=== PATIENT | male | born 1955 | race Two or more races ===

== ENCOUNTER 2021-09-21 18:16 | Inpatient (IN) | payer MEDICARE, OTHER ==
[~2021-09-21] VITALS: Ht 175.3 cm; Wt 91.6 kg
[2021-09-21] MEDS ORDERED: SODIUM CHLORIDE 0.9% 500 ML IV ONE (18:45)
[2021-09-21 19:35] LABS: Albumin 3.6 g/dL (3.4-5.0); Basophils # (auto) 0.1 10 ^3/uL (0-0.2); Basophils % (auto) 0.6 % (0.0-2.0); Eosinophils # (auto) 0.1 10 ^3/uL (0-0.8); Eosinophils % (auto) 1.2 % (0.0-7.0); Hematocrit 41.4 % (41.0-53.0); Hemoglobin 14.1 g/dL (13.5-17.5); Lymphocytes # (auto) 1.3 10 ^3/uL (0.4-5.4); Mean Corpuscular Hemoglobin 32.2 pg (28.0-32.0); Mean Corpuscular Hgb Conc. 33.9 g/dL (32.0-36.0); Mean Corpuscular Volume 94.9 fL (80.0-100.0); Monocytes # (auto) 0.7 10 ^3/uL (0-1.3); Monocytes % (auto) 7.3 % (0.0-12.0); Neutrophils # (auto) 7.8 10 ^3/uL (1.6-8.6); Neutrophils % (auto) 77.9 % (37.0-80.0); Nucleated Red Blood Cells % 0.1 %; Red Blood Cells 4.37 10^6/uL (4.5-5.90); Red Cell Distribution Width 14.7 % (11.8-14.3)
[2021-09-21 19:39] LABS: Bilirubin, Total 0.5 mg/dL (0.2-1.0); Total Protein 6.6 g/dL (6.4-8.2)
[2021-09-21 19:49] LABS: INR 1.29 (0.9-1.15)
[2021-09-21] MEDS ORDERED: IOHEXOL 350 MG/ML 100ML IJ ONE (20:11)
[2021-09-21] MEDS ORDERED: TENECTEPLASE 50 MG KIT IV ONE ×2 (21:00)
[2021-09-21] MEDS ORDERED: HEPARIN DRIP/D5W 100UNITS/ML 250 ML IV SCH (22:00)
[2021-09-21] MEDS ORDERED: HEPARIN SODIUM (PORCINE) 5000 UNITS/ML 1ML VIAL IV ONE ×2 (22:00)
[2021-09-21] MEDS ORDERED: DOCUSATE SOD 100 MG CAP PO PRN (22:15)
[2021-09-21] MEDS ORDERED: ACETAMINOPHEN 325 MG TAB PO PRN (22:15)
[2021-09-21] MEDS ORDERED: MORPHINE SULFATE INJECTION 2 MG/ML SYRG IV PRN (22:15)
[2021-09-21] MEDS ORDERED: NITROGLYCERIN 0.4 MG SL TAB SL PRN (22:15)
[2021-09-21] MEDS ORDERED: ONDANSETRON HCL 4 MG/2 ML VIAL IV PRN (22:15)
[2021-09-21 22:33] LABS: Basophils # (auto) 0.1 10 ^3/uL (0-0.2); Basophils % (auto) 0.9 % (0.0-2.0); Eosinophils # (auto) 0 10 ^3/uL (0-0.8); Eosinophils % (auto) 0.2 % (0.0-7.0); Hematocrit 41.9 % (41.0-53.0); Hemoglobin 13.7 g/dL (13.5-17.5); Lymphocytes # (auto) 0.8 10 ^3/uL (0.4-5.4); Lymphocytes % (auto) 6.2 % (10.0-50.0); Mean Corpuscular Hemoglobin 31.2 pg (28.0-32.0); Mean Corpuscular Hgb Conc. 32.6 g/dL (32.0-36.0); Mean Corpuscular Volume 95.6 fL (80.0-100.0); Monocytes # (auto) 1.4 10 ^3/uL (0-1.3); Monocytes % (auto) 10.8 % (0.0-12.0); Neutrophils # (auto) 10.6 10 ^3/uL (1.6-8.6); Neutrophils % (auto) 81.9 % (37.0-80.0); Red Blood Cells 4.38 10^6/uL (4.5-5.90); Red Cell Distribution Width 14.9 % (11.8-14.3)
[2021-09-21 22:47] LABS: INR 1.33 (0.9-1.15); Partial Thromboplastin Time 34.7 sec (23.6-33.0)
[2021-09-22 05:00] VITALS: BP 126/77
[2021-09-22] MEDS: SODIUM CHLOR 0.9% PF (SALINE LOCK) 10ML VIAL/SYR IV SCH ×3 (06:14→22:34)
[2021-09-22 07:04] LABS: Albumin 3.5 g/dL (3.4-5.0); Calcium 8.2 mg/dL (8.5-10.1); Potassium 4.2 mmol/L (3.5-5.1)
[2021-09-22 07:10] LABS: BUN/Creatinine Ratio 12.3; Bilirubin, Total 0.6 mg/dL (0.2-1.0); Total Protein 6.1 g/dL (6.4-8.2)
[2021-09-22 07:17] LABS: Basophils # (auto) 0 10 ^3/uL (0-0.2); Basophils % (auto) 0.2 % (0.0-2.0); Eosinophils # (auto) 0 10 ^3/uL (0-0.8); Eosinophils % (auto) 0.4 % (0.0-7.0); Hematocrit 39.3 % (41.0-53.0); Hemoglobin 13.2 g/dL (13.5-17.5); Lymphocytes # (auto) 1.2 10 ^3/uL (0.4-5.4); Lymphocytes % (auto) 12.9 % (10.0-50.0); Mean Corpuscular Hemoglobin 31.5 pg (28.0-32.0); Mean Corpuscular Hgb Conc. 33.6 g/dL (32.0-36.0); Mean Corpuscular Volume 93.7 fL (80.0-100.0); Monocytes # (auto) 1.2 10 ^3/uL (0-1.3); Monocytes % (auto) 12.8 % (0.0-12.0); Neutrophils # (auto) 6.9 10 ^3/uL (1.6-8.6); Neutrophils % (auto) 73.7 % (37.0-80.0); Nucleated Red Blood Cells % 0.1 %; Red Cell Distribution Width 14.4 % (11.8-14.3); White Blood Cell 9.3 10^3/uL (4.4-10.8)
[2021-09-22 07:18] LABS: INR 1.37 (0.9-1.15)
[2021-09-22 07:45] LABS: Partial Thromboplastin Time > 139.0 sec (23.6-33.0)
[2021-09-22 09:00] VITALS: BP 125/81
[2021-09-22] MEDS ORDERED: LIDOCAINE 2%HCL (LOCAL ANESTH.) INJ 20ML MDV ONE (09:40)
[2021-09-22] MEDS ORDERED: IODIXANOL 320MG/ML 100ML BTL IV ONE ×2 (09:40→10:39)
[2021-09-22] MEDS: ATENOLOL 25 MG TAB PO SCH ×2 (10:00→22:35)
[2021-09-22] MEDS: FAMOTIDINE (10MG/ML) 2ML VL IV SCH (10:00)
[2021-09-22] MEDS ORDERED: fentaNYL CITRATE 100 MCG/2 ML VL ONE ×2 (10:04→10:58)
[2021-09-22] MEDS ORDERED: ANGIOMAX 250 MG VIAL IV ONE ×2 (10:04→12:07)
[2021-09-22] MEDS ORDERED: MIDAZOLAM HCL 2MG/2ML 2ml VIAL (1mg/ml) ONE ×2 (10:05→10:58)
[2021-09-22] MEDS ORDERED: SODIUM CHL 0.9% 50 ML ONE ×2 (10:05→12:07)
[2021-09-22] MEDS ORDERED: HYDROmorphone HCL 2 MG/ML VL ONE (12:02)
[2021-09-22 13:00] VITALS: BP 100/63
[2021-09-22 17:00] VITALS: BP 124/71
[2021-09-22] MEDS: RIVAROXABAN 20 MG TAB PO SCH (18:00)
[2021-09-22 22:00] VITALS: BP 110/62
[2021-09-22] MEDS: ATORVASTATIN 20 MG TAB PO SCH (22:34)
[2021-09-22] MEDS: HYDROcodone-ACET 5/325MG TAB PO PRN (22:36)
[2021-09-23 05:00] VITALS: BP 122/68
[2021-09-23 05:59] LABS: Potassium 4.1 mmol/L (3.5-5.1)
[2021-09-23] MEDS: SODIUM CHLOR 0.9% PF (SALINE LOCK) 10ML VIAL/SYR IV SCH ×3 (05:59→22:25)
[2021-09-23] MEDS: HYDROcodone-ACET 5/325MG TAB PO PRN ×2 (05:59→22:26)
[2021-09-23 06:09] LABS: Albumin 3.3 g/dL (3.4-5.0)
[2021-09-23 06:18] LABS: BUN/Creatinine Ratio 14.7; Calcium 8.5 mg/dL (8.5-10.1)
[2021-09-23 06:20] LABS: Bilirubin, Direct 0.2 mg/dL (0-0.2); Bilirubin, Total 0.7 mg/dL (0.2-1.0); Total Protein 5.9 g/dL (6.4-8.2)
[2021-09-23 07:30] VITALS: BP 110/62
[2021-09-23] MEDS ORDERED: AMLO-489 PO (08:35)
[2021-09-23] MEDS ORDERED: ALLO100T PO (08:35)
[2021-09-23] MEDS ORDERED: LISI40TA11 PO (08:35)
[2021-09-23 08:39] LABS: Cholesterol 116 mg/dL (< 200)
[2021-09-23 08:42] LABS: HDL Cholesterol 44 mg/dL (40-59); LDL Cholesterol 56 mg/dL (< 100); Triglycerides 103 mg/dL (< 150)
[2021-09-23 08:46] VITALS: BP 111/58
[2021-09-23] MEDS: LISINOPRIL 20 MG TAB PO SCH ×2 (10:00→22:24)
[2021-09-23] MEDS: FAMOTIDINE (10MG/ML) 2ML VL IV SCH (10:14)
[2021-09-23] MEDS: ATENOLOL 25 MG TAB PO SCH ×2 (10:17→22:00)
[2021-09-23] MEDS: ALLOPURINOL 100 MG TAB PO SCH (10:17)
[2021-09-23 13:00] VITALS: BP 118/68
[2021-09-23] MEDS: amLODIPine BESYLATE 5 MG TAB PO SCH (13:04)
[2021-09-23 17:00] VITALS: BP 125/71
[2021-09-23] MEDS: RIVAROXABAN 20 MG TAB PO SCH (18:12)
[2021-09-23] MEDS: ATORVASTATIN 20 MG TAB PO SCH (22:23)
[2021-09-24 05:55] VITALS: BP 116/60
[2021-09-24] MEDS: SODIUM CHLOR 0.9% PF (SALINE LOCK) 10ML VIAL/SYR IV SCH ×3 (06:00→22:00)
[2021-09-24 09:00] VITALS: BP 111/62
[2021-09-24] MEDS: ATENOLOL 25 MG TAB PO SCH ×2 (09:41→22:00)
[2021-09-24] MEDS: FAMOTIDINE (10MG/ML) 2ML VL IV SCH (09:41)
[2021-09-24] MEDS: amLODIPine BESYLATE 5 MG TAB PO SCH (09:41)
[2021-09-24] MEDS: ALLOPURINOL 100 MG TAB PO SCH (09:42)
[2021-09-24] MEDS: LISINOPRIL 20 MG TAB PO SCH ×2 (09:42→22:21)
[2021-09-24] MEDS: RIVAROXABAN 20 MG TAB PO SCH (18:04)
[2021-09-24 22:00] VITALS: BP 139/75
[2021-09-24] MEDS: ATORVASTATIN 20 MG TAB PO SCH (22:20)
[2021-09-24] MEDS: HYDROcodone-ACET 5/325MG TAB PO PRN (22:33)
[2021-09-24] MEDS ORDERED: TOLV30TA2 PO ×2 (22:43→22:47)
[2021-09-25 05:00] VITALS: BP 117/56
[2021-09-25] MEDS: SODIUM CHLOR 0.9% PF (SALINE LOCK) 10ML VIAL/SYR IV SCH ×2 (06:26→14:00)
[2021-09-25 09:00] VITALS: BP 121/66
[2021-09-25] MEDS: FAMOTIDINE (10MG/ML) 2ML VL IV SCH (10:18)
[2021-09-25] MEDS: amLODIPine BESYLATE 5 MG TAB PO SCH (10:19)
[2021-09-25] MEDS: ATENOLOL 25 MG TAB PO SCH (10:19)
[2021-09-25] MEDS: LISINOPRIL 20 MG TAB PO SCH (10:20)
[2021-09-25] MEDS: ALLOPURINOL 100 MG TAB PO SCH (10:20)
[2021-09-25] MEDS ORDERED: RIVA20TA PO (11:05)
[2021-09-25] MEDS ORDERED: HYDR-4902 PO (11:05)
[2021-09-25 13:37] VITALS: BP 126/62
== END 2021-09-25 14:46 | disposition home or self-care (01) | DRG 270 ==
LOC: ER 18:16 → EDBD 18:16 → TELE 22:13 → TELE-CENTR 23:08
PROVIDERS: ADMIT Nurse Practitioner Family; ATTEND Family Medicine
PROC: 02CP3ZZ Extirpation of Matter from Pulmonary Trunk, Percutaneous Approach (ICD-10-PCS; principal; 2021-09-22)
PROC: 02CQ3ZZ Extirpation of Matter from Right Pulmonary Artery, Percutaneous Approach (ICD-10-PCS; 2021-09-22)
PROC: 02CR3ZZ Extirpation of Matter from Left Pulmonary Artery, Percutaneous Approach (ICD-10-PCS; 2021-09-22)
PROC: B31TYZZ Fluoroscopy of Left Pulmonary Artery using Other Contrast (ICD-10-PCS; 2021-09-22)
PROC: B31SYZZ Fluoroscopy of Right Pulmonary Artery using Other Contrast (ICD-10-PCS; 2021-09-22)
DX: I21.4 Non-ST elevation (NSTEMI) myocardial infarction (principal); I26.92 Saddle embolus of pulmonary artery without acute cor pulmonale; I82.412 Acute embolism and thrombosis of left femoral vein; Q61.3 Polycystic kidney, unspecified; R73.9 Hyperglycemia, unspecified; E78.5 Hyperlipidemia, unspecified; Z96.652 Presence of left artificial knee joint; I10 Essential (primary) hypertension; R55 Syncope and collapse; Z20.822 Contact with and (suspected) exposure to COVID-19; I25.10 Atherosclerotic heart disease of native coronary artery without angina pectoris; Z79.01 Long term (current) use of anticoagulants; Z82.49 Family history of ischemic heart disease and other diseases of the circulatory system; Z86.711 Personal history of pulmonary embolism; Z85.46 Personal history of malignant neoplasm of prostate; Z86.718 Personal history of other venous thrombosis and embolism; Z90.49 Acquired absence of other specified parts of digestive tract; Z88.2 Allergy status to sulfonamides
CPT/HCPCS: 36415; 37184; 70450; 71045; 71260; 73562; 74177; 75743; 80048; 80053; 80061; 80076; 83036; 84484; 85025; 85610; 85730; 87426; 93005; 93306; 93971; 96361; 96374; 96375; 99152; 99153; G0378; J2250; J3101; J3490; Q9967

== ENCOUNTER 2022-09-01 17:18 | Emergency (ER) | payer MEDICARE, OTHER ==
[~2022-09-01] VITALS: Ht 175.3 cm; Wt 92.3 kg
[~2022-09-01 17:18] MED LIST: ALLO100T PO; AMLO-489 PO; HYDR-4902 PO; LISI40TA11 PO; RIVA20TA PO; TOLV30TA2 PO
[2022-09-01 19:42] LABS: Basophils # (auto) 0.1 10 ^3/uL (0-0.2); Basophils % (auto) 0.8 % (0.0-2.0); Eosinophils # (auto) 0.2 10 ^3/uL (0-0.8); Eosinophils % (auto) 1.9 % (0.0-7.0); Hematocrit 46.2 % (41.0-53.0); Hemoglobin 15.3 g/dL (13.5-17.5); Lymphocytes # (auto) 2.1 10 ^3/uL (0.4-5.4); Mean Corpuscular Hemoglobin 31.7 pg (28.0-32.0); Mean Corpuscular Hgb Conc. 33.2 g/dL (32.0-36.0); Mean Corpuscular Volume 95.7 fL (80.0-100.0); Monocytes # (auto) 1.4 10 ^3/uL (0-1.3); Monocytes % (auto) 11.3 % (0.0-12.0); Neutrophils # (auto) 8.3 10 ^3/uL (1.6-8.6); Red Blood Cells 4.83 10^6/uL (4.5-5.90); Red Cell Distribution Width 14.5 % (11.8-14.3)
[2022-09-01 19:54] LABS: Albumin 4.3 g/dL (3.4-5.0); BUN/Creatinine Ratio 13.5; Calcium 9.2 mg/dL (8.5-10.1); Potassium 4.9 mmol/L (3.5-5.1)
[2022-09-01 19:56] LABS: INR 1.15 (0.9-1.15); Partial Thromboplastin Time 31.6 sec (24.6-33.4)
[2022-09-01 20:03] LABS: Bilirubin, Total 0.4 mg/dL (0.2-1.0); Total Protein 7.4 g/dL (6.4-8.2)
[2022-09-01 23:41] VITALS: BP 138/84
== END 2022-09-01 23:42 | disposition home or self-care (01) ==
LOC: ER 17:20
DX: M79.662 Pain in left lower leg (principal); M79.89 Other specified soft tissue disorders; N18.9 Chronic kidney disease, unspecified; Z86.718 Personal history of other venous thrombosis and embolism; Z79.899 Other long term (current) drug therapy; Z88.2 Allergy status to sulfonamides
CPT/HCPCS: 36415; 80053; 85025; 85610; 85730; 93971